=== PATIENT | male | born 1985 | race Two or more races ===

== ENCOUNTER → 2020-01-16 | Outpatient (CLI) | payer OTHER ==
[~2020-01-16] MED LIST: IOHEXOL 240 MG/ML 50ML VIAL. ONE
[2020-01-16] MEDS: IOHEXOL 240 MG/ML 50ML VIAL. PO ONE (11:13)
[2020-01-16] MEDS: IOHEXOL 300 MG/ML 75 ML VIAL. IV ONE (11:13)
--- NOTE | 2020-01-16 11:37 | RAD ---
EXAM: Abdomen and pelvis CT with intravenous contrast. HISTORY: Painful urination. TECHNIQUE: Computed tomographic images of the abdomen and pelvis were obtained following the administration of intravenous contrast. Multiplanar reformatting was performed. *One or more of the following individualized dose reduction techniques were utilized for this examination: 1. Automated exposure control. 2. Adjustment of the mA and/or kV according to patient size. 3. Use of iterative reconstruction technique. COMPARISON: None. FINDINGS: Evaluation of the lower thorax is unremarkable. No suspicious hepatic lesion is seen. The gallbladder, pancreas, and adrenal glands are unremarkable. There are granulomas within an otherwise unremarkable spleen. The stomach is unremarkable. There is no hydronephrosis or solid or cystic renal lesion. There is mild urinary bladder wall thickening for the degree of bladder distention. There is no appendicitis. There is no bowel obstruction. There is no lymphadenopathy. The aorta is normal in caliber. There is no suspicious osseous lesion. IMPRESSION: 1. Mild urinary bladder wall thickening for the degree of bladder distention. Correlate for cystitis. 2. Otherwise, no acute abdominal or pelvic finding. Electronically signed by: Lucia Raymond MD (01/16/2020 11:33 AM) [id number]
== END | disposition home or self-care (01) ==
LOC: CT 10:07
PROVIDERS: ATTEND Registered Nurse
DX: N30.90 Cystitis, unspecified without hematuria (principal); N32.89 Other specified disorders of bladder
CPT/HCPCS: 74177; Q9966; Q9967

== ENCOUNTER 2020-01-30 10:09 | Emergency (ER) | payer OTHER ==
[~2020-01-30] VITALS: Ht 170.2 cm; Wt 75.3 kg
[2020-01-30 10:20] VITALS: BP 144/69
[2020-01-30] MEDS ORDERED: TAMSULOSIN 0.4 MG CAP.ER.24H. PO ONE (10:45)
--- NOTE | 2020-01-30 10:56 | PHYS DOC ---
Past History Past Medical History: Other Additional Past Medical Histor: DYSURIA X 5 YEARS Past Surgical History: No Surgical History Additional Smoking Information: 1/2 PACK Alcohol Use: None General Adult EDM: Chief Complaint: PAIN ON URINATION HPI: HPI: Patient is a 34-year-old male who was just released [facility]. He states he has had dysuria difficulty urinating for between 3 and 5 years. He has been seen and evaluated in the [facility] system been on and off of Flomax without much relief. He states he was scheduled to have an appointment with a urologist today but they reschedule it to next week so he showed up in the emergency department stating he is again being bothered by dysuria. He denies any significant pain. He denies fever chills or sweats. There is been no gross hematuria. He has been seen for this recently by his primary care physician and had a CT scan of the abdomen and pelvis which was unremarkable. [] Review of Systems: Review of Systems: Constitutional: Denies fever or chills Eyes: Denies change in visual acuity HENT: Denies nasal congestion or sore throat Respiratory: Denies cough or shortness of breath Cardiovascular: Denies chest pain or edema GI: Denies abdominal pain, nausea, vomiting, bloody stools or diarrhea : Per HPI Musculoskeletal: Denies back pain or joint pain Integument: Denies rash Neurologic: Denies headache, focal weakness or sensory changes Endocrine: Denies polyuria or polydipsia Lymphatic: Denies swollen glands Psychiatric: Denies depression or anxiety Heart Score: Risk Factors: Risk Factors: DM, Current or recent (<one month) smoker, HTN, HLP, family history of CAD, obesity. Risk Scores: Score 0 - 3: 2.5% MACE over next 6 weeks - Discharge Home Score 4 - 6: 20.3% MACE over next 6 weeks - Admit for Clinical Observation Score 7 - 10: 72.7% MACE over next 6 weeks - Early Invasive Strategies Current Medications: Current Meds: Current Medications Medications (Trade) Dose Ordered Sig/[place] Start Time Stop Time Status Last Admin Dose Admin Tamsulosin HCl (Flomax) 0.4 mg 1X ONCE 01/30/20 10:45 01/30/20 10:46 DC 01/30/20 10:45 0.4 MG Allergies: Allergies: Allergies Coded Allergies Type Severity Reaction Last Updated Verified No Known Drug Allergies 01/16/20 No Physical Exam: PE: Constitutional: Well developed, well nourished, no acute distress, non-toxic appearance. [] HENT: Normocephalic, atraumatic, bilateral external ears normal, oropharynx moist, no oral exudates, nose normal. [] Eyes: PERRLA, EOMI, conjunctiva normal, no discharge. [] Neck: Normal range of motion, no tenderness, supple, no stridor. [] Cardiovascular:Heart rate regular rhythm, no murmur [] Lungs & Thorax: Bilateral breath sounds clear to auscultation [] Abdomen: Bowel sounds normal, soft, no tenderness, no masses, no pulsatile mass es. [] Skin: Warm, dry, no erythema, no rash. [] Back: No tenderness, no CVA tenderness. [] Extremities: No tenderness, no cyanosis, no clubbing, ROM intact, no edema. [] Neurologic: Alert and oriented X 3, normal motor function, normal sensory function, no focal deficits noted. [] Psychologic: Affect normal, judgement normal, mood normal. [] Current Patient Data: Vital Signs: Vital Signs Date Time Temp Pulse Resp B/P (MAP) Pulse Ox O2 Delivery O2 Flow Rate FiO2 01/30/20 10:20 98.5 74 20 144/69 (94) 98 Room Air EKG: EKG: [] Radiology/Procedures: Radiology/Procedures: [] Course & Med Decision Making: Course & Med Decision Making Pertinent Labs and Imaging studies reviewed. (See chart for details) [] Dragon Disclaimer: Dragon Disclaimer: This electronic medical record was generated, in whole or in part, using a voice recognition dictation system. Departure Departure: Impression: Primary Impression: Dysuria Disposition: HOME/RESIDENCE PRIOR TO ADM Condition: STABLE Referrals: [facility] (PCP) JIMMY DELGADO MD It is very important that you keep your appointment that is scheduled next week Patient Instructions: Dysuria ENOCH MARTÍNEZ DO January 30, 2020 10:56
[2020-01-30 11:05] LABS: BACTERIA,URINE MANY /HPF (0-FEW); BILIRUBIN,URINE NEG (NEG); CLARITY,URINE CLEAR; COLOR,URINE YELLOW; GLUCOSE,URINE NEG (NEG); NITRITE,URINE NEG (NEG); SQUAMOUS EPITHELIAL CELL,UR FEW /LPF; UROBILINOGEN,URINE 0.2 mg/dL (0.2 mg/dL)
== END 2020-01-30 11:10 | disposition home or self-care (01) ==
LOC: ER 10:09
DX: R30.0 Dysuria (principal); F17.200 Nicotine dependence, unspecified, uncomplicated
CPT/HCPCS: 81001; 87086; 99284